=== PATIENT | male | born 1985 | race Caucasian/White ===

== ENCOUNTER → 2018-05-01 | Outpatient (CLI) | payer BC | END | disposition home or self-care (01) | LOC: LAB 11:29 | PROVIDERS: ATTEND Internal Medicine | DX: Z01.818 Encounter for other preprocedural examination (principal) | CPT/HCPCS: 80053; 80061; 81001; 84443; 85025; 85610; 85730 ==

== ENCOUNTER 2018-05-10 11:37 | Day surgery (SDC) | payer BC ==
--- NOTE | 2018-05-08 19:42 | PREOPHP ---
DATE OF ADMISSION: 05/10/2018 CHIEF COMPLAINT: The patient is here for preop for septoplasty, turbinate reduction and nasal valve repair. HISTORY OF PRESENT ILLNESS: The patient is a 33-year-old male with a long history of devia yolanda septum with progressive nasal congestion, snoring and difficulty breathing through his nose for s everal years. The patient has noticed difficulty in singing and physical activities due to his diffi culties breathing through his nose. Denies any pain, discharge. No recent illnesses. No chest pain , shortness of breath, fever, chills or night sweats. The patient was evaluated by Dr. Mcgee and r ecommended the proposed procedure. The patient is scheduled for his procedure on 05/10/2018. PAST MEDICAL HISTORY: Deviated septum, allergic rhinitis. OPERATIONS: None. MEDICATIONS: None. ALLERGIES: THE PATIENT HAS NO KNOWN DRUG ALLERGIES. SOCIAL HISTORY: The patient denies any tobacco use. Occasional alcohol use. He is . 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. FAMILY HISTORY: The patient's father is alive and well. Mother is alive and well. He has a brother who has history of Wilms tumor. REVIEW OF SYSTEMS: GENERAL: The patient denies any fever, chills, night sweats or other general complaints. HEENT: As noted in the HPI. RESPIRATORY: The patient denies any cough, wheeze, shortness of breath or other respiratory complain ts. CARDIOVASCULAR: The patient denies any chest pains, palpitations, dizziness or other cardiovascular symptoms. GASTROINTESTINAL: The patient denies any abdominal pain, nausea, vomiting, bright red blood per rect um, melena or other GI symptoms. GENITOURINARY: The patient denies any dysuria, frequency or other symptoms. NEUROLOGIC: The patient denies any numbness, tingling, weakness or other focal neurologic symptoms. PHYSICAL EXAMINATION: VITAL SIGNS: Pulse of 70, blood pressure 108/70, respirations 12. GENERAL APPEARANCE: This is a well-developed, well-nourished male in no acute distress. H e appears nontoxic. HEENT: Normocephalic, atraumatic. Sclerae are anicteric. Oropharynx is clear. TMs are clear. NECK: Supple without adenopathy. There is no thyromegaly, no bruits. LUNGS: Clear to auscultation. CARDIAC: Regular rate and rhythm. ABDOMEN: Bowel sounds are present. Abdomen is soft, nontender, nondistended. EXTREMITIES: Without cyanosis, clubbing or edema. NEUROLOGICAL: The patient is alert and oriented x3 with no focal neurologic findings. IMPRESSION: 1. Deviated septum. 2. Allergic rhinitis. PLAN: Preop labs. If labs are okay, okay for surgery. No aspirin, NSAIDs or blood thinners prior t o surgery. Diet, exercise, weight maintenance and continue his current treatment. Followup is to be arranged. ADDENDUM: Data reviewed. Labs are notable for 1+ hematuria. The patient is asymptomatic. Otherwis e, labs are unremarkable. The patient is medically stable to proceed with his proposed procedure. Dictated By: VI MANDEL MD MN/SEDRICK Conf#: [id number] DID#: [id number] CC: FREDI MCGEE MD;*EndCC*
[2018-05-09 15:24] VITALS: BMI 23.5
[2018-05-10] VITALS (11 sets, daily range): BP systolic 101–138; BP diastolic 58–72; PULSE 60–78; RESP 12–30; Ht 170.2 cm; Wt 68.1 kg
[~2018-05-10] VITALS: Ht 170.2 cm; Wt 68.1 kg
[~2018-05-10 11:37] MED LIST: NEOSTIGMINE 3 MG/3 ML SYRINGE ONE; SEVOFLURANE 15 MIN ONE
[2018-05-10] MEDS ORDERED: PROPOFOL 0 ML ONE (13:31)
[2018-05-10] MEDS ORDERED: LIDOCAINE 2% (SDV) 5 ML INJ ONE ×2 (13:31→14:03)
[2018-05-10] MEDS ORDERED: ROCURONIUM 50 MG INJ ONE ×2 (13:31→14:03)
--- NOTE | 2018-05-10 13:53 | PREAC ---
Date/Time of Note Date/Time of Note DATE: 05/10/18 TIME: 13:52 Anesthesia Eval and Record Evaluation Time Pre-Procedure Interview DATE: 05/10/18 TIME: 13:52 Age 33 Sex male NPO: 8 hrs Preoperative diagnosis Deviated nasal septum Planned procedure Septoplasty, turbinate reduction, bilateral nasal valve repair Past Medical History Past Medical History: None Surgery & Anesthesia Issues No known issue Meds Anticoagulation: No Beta Jack within 24 hr: No Reason Beta Jack not given: Pt. not on B-Jack No Active Prescriptions or Reported Meds Meds reviewed: Yes Allergies Coded Allergies: No Known Allergy (Unverified , 05/10/18) Allergies Reviewed: Yes Labs/Studies Labs Reviewed: Reviewed by anesthesiologist test: N/A Pre-procedure Exam Last vitals Vital Signs Date Temp Pulse Resp B/P (MAP) Pulse Ox O2 O2 Flow FiO2 Time Delivery Rate 05/10/18 98.2 60 18 116/72 99 Room Air 12:16 (87) Airway: Adequate mouth opening Mallampati: Mallampati I Teeth: Normal Lung: Normal Heart: Normal ASA Physical Status ASA physical status: 1 Emergency: None Planned Anesthetic General/MAC: ETT Planned Pain Management Parenteral pain med Pre-operative Attestations Prior to commencing anesthesia and surgery, the patient was re-evaluated, there was verification of: *The patient's identity *The results of appropriate recent lab work and preoperative vital signs *The above evaluation not changing prior to induction *Anesthetic plan, risk benefits, alternative and complications discussed with patient/family; questions answered; patient/family understands, accepts and wishes to proceed. PRISCILLA HERNANDEZ MD May 10, 2018 13:53
[2018-05-10] MEDS ORDERED: COCAINE 4% 4 ML TOP ONE (13:59)
[2018-05-10] MEDS ORDERED: BACITRACIN/POLYMYXIN 28.35 GM OINT TOP ONE (13:59)
[2018-05-10] MEDS ORDERED: LIDOCAINE 1%/EPI (1:100,000) (MDV) 20 ML ONE (13:59)
[2018-05-10] MEDS ORDERED: GLYCOPYRROLATE 0.4 MG INJ ONE (14:03)
[2018-05-10] MEDS ORDERED: PROPOFOL 20 ML ONE (14:03)
[2018-05-10] MEDS ORDERED: SUCCINYLCHOLINE CHLORIDE 100 MG/5 ML SYG IV ONE (14:03)
[2018-05-10] MEDS ORDERED: MEPERIDINE 100 MG INJ ONE (14:04)
[2018-05-10] MEDS ORDERED: CEFAZOLIN 1 GM INJ ONE (14:32)
[2018-05-10] MEDS ORDERED: ONDANSETRON 4 MG INJ ONE (14:36)
[2018-05-10] MEDS ORDERED: LACTATED RINGER'S 1,000 ML IV ONE (15:15)
--- NOTE | 2018-05-10 15:21 | HPN ---
Date/Time of Note Date/Time of Note DATE: 05/10/18 TIME: 15:20 Interval H&P Admission Note Pt. seen H&P reviewed: No system changes FREDI MCGEE MD May 10, 2018 15:21
--- NOTE | 2018-05-10 15:23 | OPR ---
Date/Time of Note Date/Time of Note DATE: 05/10/18 TIME: 15:21 Operative Report Procedure Date: May 10, 2018 Preoperative Diagnosis nasal obstruction Postoperative Diagnosis same Operation/Procedure Performed septoplasty, turbinate reduction, valve repair Surgeon josias signature line Ve Teacher none Anesthesia Type: general Estimated Blood Loss: minimal Transfusion none Specimen septo, turb Grafts/Implants none Complications none Pt Condition Post Procedure: stable Disposition: PACU Indications nasal obstruction Procedure Description septoplasty and turbinate reduction and valve repair performed, see dictation FREDI MCGEE MD May 10, 2018 15:23
--- NOTE | 2018-05-10 15:25 | SIPON ---
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
[2018-05-10] MEDS ORDERED: SENNA/DOCUSATE NA (8.6MG/50MG) TAB PO PRN (15:30)
[2018-05-10] MEDS ORDERED: MAGNESIUM HYDROXIDE 30ML CUP PO PRN (15:30)
[2018-05-10] MEDS ORDERED: LORAZEPAM 2 MG INJ IV PRN (15:30)
[2018-05-10] MEDS ORDERED: BISACODYL 10 MG SUPP PR PRN (15:30)
[2018-05-10] MEDS ORDERED: LORAZEPAM 0.5 MG TAB PO PRN (15:30)
[2018-05-10] MEDS ORDERED: SENNA TAB PO PRN (15:30)
[2018-05-10] MEDS ORDERED: ACETAMINOPHEN 325 MG TAB PO PRN (15:30)
[2018-05-10] MEDS ORDERED: HYDROmorphONE 0.5 MG/0.5 ML SYG IV PRN (15:30)
[2018-05-10] MEDS ORDERED: HYDROCODONE/APAP (5/325) TAB PO PRN (15:30)
[2018-05-10] MEDS ORDERED: DOCUSATE SODIUM 100 MG CAP PO PRN (15:30)
[2018-05-10] MEDS ORDERED: ONDANSETRON 4 MG INJ IV PRN ×2 (15:30→16:00)
[2018-05-10] MEDS ORDERED: HYDROmorphONE 1 MG/5 ML IV SYRINGE IV ONE (15:38)
[2018-05-10] MEDS ORDERED: HYDROmorphONE 1 MG/5 ML IV SYRINGE IV PRN (16:00)
[2018-05-10] MEDS ORDERED: OXYCODONE/ACETAMINOPHEN (5/325) TAB PO PRN (16:00)
[2018-05-10] MEDS ORDERED: FENTAnyl 50 MCG/ML VIAL IV PRN (16:00)
--- NOTE | 2018-05-10 18:47 | OPR ---
DATE OF OPERATION: 05/10/2018 PREOPERATIVE DIAGNOSES: 1. Nasoseptal deviation. 2. Turbinate hypertrophy. 3. Nasal valve collapse. POSTOPERATIVE DIAGNOSES: 1. Nasoseptal deviation. 2. Turbinate hypertrophy. 3. Nasal valve collapse. PROCEDURES PERFORMED: 1. Septoplasty. 2. Bilateral inferior turbinate reduction. 3. Bilateral valve repair with open reduction and internal fixation nasal fracture. SURGEON: Joss Chacon MD INDICATIONS: Nasal obstruction. DESCRIPTION OF PROCEDURE: The patient was consented and placed supine on the operative table. After induction of general anesthesia, table was rotated to 90 degrees. The nose was injected with 10 mL of 1% lidocaine and epinephrine. A 4% cocaine soaked pledgets were applied. A left hemitransfixion incision was made. Mucosa was elevated bilaterally. Deviated portion of the septum and submucosa we re resected. The inferior turbinates were medialized. Mucosa was elevated, submucosally cauterized, partially resected and lateralized. A 4 x 4 x 8 mm piece of the cartilaginous graft was placed in t he intranasal valve angle area and sutured ____ using 4-0 chromic suture. At this point, ____ was el evated. The dorsal shape was completed, allowing reduction of the deformity. Intranasal incisions w ere closed with 4-0 chromic. Lorne bivalve splints were placed. Nasal packing and tape were applie d. Procedure was then completed. The patient was awakened and extubated and taken to recovery room. Dictated By: JOSS DURAND/SEDRICK Conf#: [id number] DID#: [id number]
[2018-05-10] MEDS ORDERED: DOCUSATE SODIUM 100 MG CAP PO SCH (21:00)
--- NOTE | 2018-05-11 06:55 | PAC ---
Date/Time of Note Date/Time of Note DATE: 05/11/18 TIME: 06:55 Post-Anesthesia Notes Post-Anesthesia Note Last documented vital signs Vital Signs Date Temp Pulse Resp B/P (MAP) Pulse Ox O2 O2 Flow FiO2 Time Delivery Rate 05/10/18 98.3 77 18 138/71 99 16:30 (93) 05/10/18 Room Air 16:13 Activity: WNL Respiratory function: WNL Cardiovascular function: WNL Mental status: Baseline Pain reasonably controlled: Yes Hydration appropriate: Yes Nausea/Vomiting absent: Yes PRISCILLA HERNANDEZ MD May 11, 2018 06:55
== END 2018-05-10 17:40 | disposition home or self-care (01) ==
LOC: EEVIPCON 11:37 → SDS 11:37
PROVIDERS: ATTEND Internal Medicine
DX: J34.2 Deviated nasal septum (principal); J34.3 Hypertrophy of nasal turbinates; J34.89 Other specified disorders of nose and nasal sinuses
CPT/HCPCS: 30140; 30520; 88304; J0690; J1170; J2175; J2405; J2710

== ENCOUNTER → 2018-11-22 | Outpatient (CLI) | payer BC | END | disposition home or self-care (01) | LOC: RAD 13:05 | PROVIDERS: ATTEND Urology | DX: R31.29 Other microscopic hematuria (principal) | CPT/HCPCS: 74018; 76775 ==